=== PATIENT | female | born 1980 | race Caucasian/White ===

== ENCOUNTER 2016-12-07 16:31 | Observation (INO) | payer OTHER ==
--- NOTE | 2016-12-07 16:53 | EDM.PDOC ---
ED HPI GENERAL MEDICAL PROBLEM - General Chief Complaint: Genitourinary Problem Stated Complaint: POSSIBLE KIDNEY INFECTION Time Seen by Provider: 12/07/16 16:33 - History of Present Illness INITIAL COMMENTS - FREE TEXT/NARRATIVE: HISTORY AND PHYSICAL: History of present illness: Patient 36-year-old white female presented concern of bilateral flank pain states she was recently diagnosed with urinary tract infection patient denies fever chills nausea vomiting or other concerns Review of systems: As per history of present illness and below otherwise all systems reviewed and negative. Past medical history: As per history of present illness and as reviewed below otherwise noncontributory. Surgical history: As per history of present illness and as reviewed below otherwise noncontributory. Social history: No reported history of drug or alcohol abuse. Family history: As per history of present illness and as reviewed below otherwise noncontributory. Physical exam: HEENT: Atraumatic, normocephalic, pupils reactive, negative for conjunctival pallor or scleral icterus, mucous membranes moist, throat clear, neck supple, nontender, trachea midline. Lungs: Clear to auscultation, breath sounds equal bilaterally, chest nontender. Heart: S1S2, regular, negative for clicks, rubs, or JVD. Abdomen: Soft, nondistended, nontender. Negative for masses or hepatosplenomegaly. Negative for costovertebral tenderness. Pelvis: Stable nontender. Genitourinary: Deferred. Rectal: Deferred. Extremities: Atraumatic, negative for cords or calf pain. Neurovascular unremarkable. Neuro: Awake, alert, oriented. Cranial nerves II through XII unremarkable. Cerebellum unremarkable. Motor and sensory unremarkable throughout. Exam nonfocal. Diagnostics: CBC CMP UA urine C&S Therapeutics: None Impression: #1 history urinary tract infection #2 bilateral flank pain Definitive disposition and diagnosis as appropriate pending reevaluation and review of above. Low Back Pain Score (Numeric/FACES): 6 - Related Data Allergies Allergy/AdvReac Type Severity Reaction Status Date / Time ciprofloxacin [From Cipro] Allergy Burning Verified 12/07/16 16:50 ciprofloxacin HCl Allergy Burning Verified 12/07/16 16:50 [From Cipro] latex Allergy Redness Verified 12/07/16 16:50 nitrofurantoin Allergy Difficulty Verified 12/07/16 16:50 [From Macrobid] Breathing nitrofurantoin Allergy Difficulty Verified 12/07/16 16:50 macrocrystalline Breathing [From Macrobid] Sulfa (Sulfonamide Allergy Difficulty Verified 12/07/16 16:50 Antibiotics) Breathing Home Meds: Home Meds FLUoxetine [PROzac] 40 mg PO DAILY 02/08/14 [History] Multivitamins [Multivitamins] 1 cap PO DAILY 02/08/14 [History] Levofloxacin [IJP: Levofloxacin] 500 mg PO DAILY 12/07/16 [History] atorvaSTATin [Lipitor] 20 mg PO ONETIME 12/07/16 [History] hydrOXYzine HCl [Atarax] 50 mg PO BEDTIME 12/07/16 [History] Past Medical History 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: Reports: Psychiatric History: Reports: Depression Endocrine/Metabolic History: Reports: Other (see below) Other Endocrine/Metabolic History: prediabetic Dermatologic History: Reports: None - Past Surgical History HEENT Surgical History: Reports: Tonsillectomy Other HEENT Surgeries/Procedures: adenoidectomy GI Surgical History: Reports: Cholecystectomy, Other (see below) Other GI Surgeries/Procedures: gastric bypass Female Surgical History: Reports: D&C, Hysterectomy Social & Family History - Tobacco Use Smoking Status *Q: Never Smoker Years of Tobacco use: 10 Packs/Tins Daily: 1 Second Hand Smoke Exposure: No - Alcohol Use Days Per Week of Alcohol Use: 0 - Recreational Drug Use Recreational Drug Use: No ED ROS GENERAL - Review of Systems Review Of Systems: ROS reveals no pertinent complaints other than HPI. ED EXAM, GENERAL - Physical Exam Exam: See Below (See dictation) Course - Vital Signs Last Recorded V/S: Last Vital Signs Temp 38.5 C H 12/07/16 18:24 Pulse 77 12/07/16 18:24 Resp 18 12/07/16 18:24 BP 111/59 L 12/07/16 18:24 Pulse Ox 95 12/07/16 18:24 - Orders/Labs/Meds Orders: Active Orders 24 hr Category Date Time Status Abdomen Pelvis wo Cont [CT] Stat Exams 12/07/16 17:31 Taken CULTURE URINE [RM] Stat Lab 12/07/16 16:55 Received Labs: Laboratory Tests 12/07/16 12/07/16 12/07/16 Range/Units 16:55 16:55 17:02 WBC 16.53 H (4.0-11.0) K/uL RBC 4.83 (4.30-5.90) M/uL Hgb 11.6 L (12.0-16.0) g/dL Hct 37.2 (36.0-46.0) % MCV 77.0 L (80.0-98.0) fL MCH 24.0 L (27.0-32.0) pg MCHC 31.2 (31.0-37.0) g/dL RDW Std Deviation 48.3 (28.0-62.0) fl RDW Coeff of Joce 17 H (11.0-15.0) % Plt Count 326 (150-400) K/uL MPV 9.10 (7.40-12.00) fL Neut % (Auto) 75.0 (48.0-80.0) % Lymph % (Auto) 16.3 (16.0-40.0) % Hard[place] % (Auto) 7.6 (0.0-15.0) % Eos % (Auto) 0.9 (0.0-7.0) % Baso % (Auto) 0.2 (0.0-1.5) % Neut # (Auto) 12.4 H (1.4-5.7) K/uL Lymph # (Auto) 2.7 H (0.6-2.4) K/uL Harding # (Auto) 1.3 H (0.0-0.8) K/uL Eos # (Auto) 0.2 (0.0-0.7) K/uL Baso # (Auto) 0.0 (0.0-0.1) K/uL Nucleated RBC % 0.0 /100WBC Nucleated RBCs # 0 K/uL Sodium (136-146) mmol/L Potassium (3.5-5.1) mmol/L Chloride (98-110) mmol/L Carbon Dioxide (21-31) mmol/L BUN (6.0-23.0) mg/dL Creatinine (0.6-1.5) mg/dL Est Cr Clr Drug Dosing mL/min Estimated GFR (MDRD) ml/min Glucose (60-110) mg/dL Calcium (8.8-10.8) mg/dL Total Bilirubin (0.1-1.5) mg/dL AST (5-40) IU/L ALT (8-54) IU/L Alkaline Phosphatase (40-150) Total Protein (6.0-8.0) g/dL Albumin (3.5-5.0) g/dL Globulin (2.0-3.5) g/dL Albumin/Globulin Ratio (1.3-2.8) Urine Color YELLOW Urine Appearance CLEAR Urine pH 6.0 (5.0-8.0) Ur Specific [place] 1.020 (1.001-1.035) Urine Protein NEGATIVE (NEGATIVE) mg/dL Urine Glucose (UA) NEGATIVE (NEGATIVE) mg/dL Urine Ketones NEGATIVE (NEGATIVE) mg/dL Urine Occult Blood LARGE H (NEGATIVE) Urine Nitrite NEGATIVE (NEGATIVE) Urine Bilirubin NEGATIVE (NEGATIVE) Urine Urobilinogen 0.2 (<2.0) EU/dL Ur Leukocyte Esterase NEGATIVE (NEGATIVE) Urine RBC 0-2 (0-2/HPF) Urine WBC 0-3 (0-5/HPF) Ur Epithelial Cells FEW (NONE-FEW) Urine Bacteria FEW (NEGATIVE) Urine Mucus LIGHT (NONE-MOD) Urine HCG, Qual NEGATIVE (NEGATIVE) 12/07/16 Range/Units 17:02 WBC (4.0-11.0) K/uL RBC (4.30-5.90) M/uL Hgb (12.0-16.0) g/dL Hct (36.0-46.0) % MCV (80.0-98.0) fL MCH (27.0-32.0) pg MCHC (31.0-37.0) g/dL RDW Std Deviation (28.0-62.0) fl RDW Coeff of Joce (11.0-15.0) % Plt Count (150-400) K/uL MPV (7.40-12.00) fL Neut % (Auto) (48.0-80.0) % Lymph % (Auto) (16.0-40.0) % Harding % (Auto) (0.0-15.0) % Eos % (Auto) (0.0-7.0) % Baso % (Auto) (0.0-1.5) % Neut # (Auto) (1.4-5.7) K/uL Lymph # (Auto) (0.6-2.4) K/uL Harding # (Auto) (0.0-0.8) K/uL Eos # (Auto) (0.0-0.7) K/uL Baso # (Auto) (0.0-0.1) K/uL Nucleated RBC % /100WBC Nucleated RBCs # K/uL Sodium 140 (136-146) mmol/L Potassium 3.8 (3.5-5.1) mmol/L Chloride 106 (98-110) mmol/L Carbon Dioxide 22 (21-31) mmol/L BUN 9 (6.0-23.0) mg/dL Creatinine 1.0 (0.6-1.5) mg/dL Est Cr Clr Drug Dosing 60.98 mL/min Estimated GFR (MDRD) > 60.0 ml/min Glucose 119 H (60-110) mg/dL Calcium 9.1 (8.8-10.8) mg/dL Total Bilirubin 0.3 (0.1-1.5) mg/dL AST 16 (5-40) IU/L ALT 15 (8-54) IU/L Alkaline Phosphatase 113 (40-150) Total Protein 7.3 (6.0-8.0) g/dL Albumin 3.9 (3.5-5.0) g/dL Globulin 3.4 (2.0-3.5) g/dL Albumin/Globulin Ratio 1.2 L (1.3-2.8) Urine Color Urine Appearance Urine pH (5.0-8.0) Ur Specific [place] (1.001-1.035) Urine Protein (NEGATIVE) mg/dL Urine Glucose (UA) (NEGATIVE) mg/dL Urine Ketones (NEGATIVE) mg/dL Urine Occult Blood (NEGATIVE) Urine Nitrite (NEGATIVE) Urine Bilirubin (NEGATIVE) Urine Urobilinogen (<2.0) EU/dL Ur Leukocyte Esterase (NEGATIVE) Urine RBC (0-2/HPF) Urine WBC (0-5/HPF) Ur Epithelial Cells (NONE-FEW) Urine Bacteria (NEGATIVE) Urine Mucus (NONE-MOD) Urine HCG, Qual (NEGATIVE) Departure - Departure Time of Disposition: 16:52 Disposition: Refer to Observation Condition: good Clinical Impression: Fever, Leukocytosis, Flank pain Referrals: PCP,None [Primary Care Provider] - Forms: ED Department Discharge - My Orders Last 24 Hours: My Active Orders 12/07/16 16:55 CULTURE URINE [RM] Stat 12/07/16 17:31 Abdomen Pelvis wo Cont [CT] Stat - Assessment/Plan Last 24 Hours: My Active Orders 12/07/16 16:55 CULTURE URINE [RM] Stat 12/07/16 17:31 Abdomen Pelvis wo Cont [CT] Stat
[2016-12-07 17:29] LABS: CHLORIDE,CL 106 mmol/L (98-110); SODIUM,NA 140 mmol/L (136-146)
[2016-12-07] MEDS ORDERED: cefTRIAXone 1 GM in Premix Bag 1 BAG IV ONE (18:48)
[2016-12-07] MEDS ORDERED: cefTRIAXone 2 GM in Premix Bag 1 BAG IV ONE (18:51)
[2016-12-07] MEDS ORDERED: Sodium Chloride 0.9% 1,000 ML IV ONE (18:51)
[2016-12-07] MEDS ORDERED: Sodium Chloride 0.9% 1,000 ML IV SCH (19:00)
--- NOTE | 2016-12-07 19:23 | PCM.HP ---
H&P History of Present Illness - General Date of Service: 12/07/16 Admit Problem/Dx: Admission Diagnosis/Problem Admission Diagnosis/Problem Fever Source of Information: Patient, Old records, Provider, RN - History of Present Illness Initial Comments - Free Text/Narative: Presented to the emergency department today. She had been on Levaquin as an outpatient for a UTI. She continues to have fever or chills lobe to mid back pain with urination. She has also had a cough. She is a feeling of tightness in her chest is been present for over one day it is been pretty consistent. Low Back Pain Score (Numeric/FACES): 6 - Related Data Allergies/Adverse Reactions: Allergies Allergy/AdvReac Type Severity Reaction Status Date / Time ciprofloxacin [From Cipro] Allergy Burning Verified 12/07/16 16:50 ciprofloxacin HCl Allergy Burning Verified 12/07/16 16:50 [From Cipro] latex Allergy Redness Verified 12/07/16 16:50 nitrofurantoin Allergy Difficulty Verified 12/07/16 16:50 [From Macrobid] Breathing nitrofurantoin Allergy Difficulty Verified 12/07/16 16:50 macrocrystalline Breathing [From Macrobid] Sulfa (Sulfonamide Allergy Difficulty Verified 12/07/16 16:50 Antibiotics) Breathing Home Medications: Home Meds FLUoxetine [PROzac] 40 mg PO DAILY 02/08/14 [History] Multivitamins [Multivitamins] 1 cap PO DAILY 02/08/14 [History] Levofloxacin [IJP: Levofloxacin] 500 mg PO DAILY 12/07/16 [History] atorvaSTATin [Lipitor] 20 mg PO ONETIME 12/07/16 [History] hydrOXYzine HCl [Atarax] 50 mg PO BEDTIME 12/07/16 [History] Past Medical History Cardiovascular History: Reports: High cholesterol. 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: Neurological History: Denies: Alzheimers disease, CVA Psychiatric History: Reports: Depression Endocrine/Metabolic History: Reports: Other (see below) Other Endocrine/Metabolic History: prediabetic Oncologic (Cancer) History: Reports: None Dermatologic History: Reports: None - Past Surgical History HEENT Surgical History: Reports: Tonsillectomy Other HEENT Surgeries/Procedures: adenoidectomy GI Surgical History: Reports: Cholecystectomy, Other (see below) Other GI Surgeries/Procedures: gastric bypass Female Surgical History: Reports: D&C, Hysterectomy Social & Family History - Family History Family Medical History: Noncontributory - Tobacco Use Years of Tobacco use: 10 Packs/Tins Daily: 1 Second Hand Smoke Exposure: No - Alcohol Use Days Per Week of Alcohol Use: 0 - Recreational Drug Use Recreational Drug Use: No H&P Review of Systems - Review of Systems: Review Of Systems: See Below General: Reports: fever, chills HEENT: Denies: ear pain Pulmonary: Reports: Cough, Other (chest heaviness) Gastrointestinal: Reports: Abdominal pain (suprapubic pain) Genitourinary: Reports: hematuria, flank pain Psychiatric: Denies: agitation Exam - Exam Exam: See Below - Vital Signs Vital Signs: Last Vital Signs Temp 101.3 F H 12/07/16 18:24 Pulse 77 12/07/16 18:24 Resp 18 12/07/16 18:24 BP 111/59 L 12/07/16 18:24 Pulse Ox 95 12/07/16 18:24 Weight: 114.2 kg - Exam General: alert, oriented HEENT: EOMI, Mucosa moist & pink Neck: supple, trachea midline Lungs: Clear to auscultation, Normal respiratory effort Cardiovascular: regular rate, regular rhythm Abdomen: soft, tenderness (Suprapubic tenderness) (Female) Exam: Deferred Rectal (Female) Exam: Deferred Back Exam: other (Bilateral flank tenderness) Extremities: No: edema Neurological: cranial nerves intact, normal gait, normal speech. No: abnormal gait Neuro Extensive - Motor, Sensory, Reflexes: No: facial palsy (L), facial palsy ( R), hemiplagia (L), hemiplagia (R) - Patient Data Result Diagrams: 12/07/16 17:02 12/07/16 17:02 *Q Meaningful Use (ADM) - VTE *Q VTE Criteria *Q: - Stroke *Q Stroke Criteria *Q: - AMI *Q AMI Criteria *Q: - Problem List (1) UTI (urinary tract infection) SNOMED Code(s): 25560212 ICD Code: N39.0 - URINARY TRACT INFECTION, SITE NOT SPECIFIED Status: Acute Current Visit: Yes (2) Flank pain SNOMED Code(s): 681409738 ICD Code: R10.9 - UNSPECIFIED ABDOMINAL PAIN Status: Acute Current Visit : Yes (3) Leukocytosis SNOMED Code(s): 772598247, 720537011 ICD Code: D72.829 - ELEVATED WHITE BLOOD CELL COUNT, UNSPECIFIED Status: Acute Current Visit: Yes (4) Chest pain SNOMED Code(s): 15802065 ICD Code: R07.9 - CHEST PAIN, UNSPECIFIED Status: Acute Current Visit: Yes Problem List Initiated/Reviewed/Updated: Yes Orders Last 24hrs: Active Orders 24 hr Category Date Time Status EKG Documentation Completion [RC] STAT Care 12/07/16 19:08 Active Chest 2V [CR] Stat Exams 12/07/16 18:55 Taken TROPONIN I [CHEM] Stat Lab 12/07/16 19:08 Ordered Sodium Chloride 0.9% [Normal Saline] 1,000 ml Med 12/07/16 18:51 Active IV STAT cefTRIAXone [Rocephin in Dextrose,Iso-Osm 2 GM/50 ML] 2 Med 12/07/16 18:51 Active gm Premix Bag 1 bag IV ONETIME Medication Orders Sodium Chloride (Normal Saline) 1,000 mls @ 999 mls/hr IV STAT ONE Stop: 12/07/16 19:51 Last Admin: 12/07/16 18:59 Dose: 999 mls/hr Ceftriaxone Sodium/Dextrose 2 (gm/ Premix) 50 mls @ 100 mls/hr IV ONETIME ONE Stop: 12/07/16 19:20 Last Admin: 12/07/16 18:59 Dose: 100 mls/hr Assessment/Plan Comment:: Admit to observation. See orders. Cover with antibiotics.
[2016-12-07] MEDS ORDERED: Ondansetron 4 MG/2 ML SDV IVPUSH PRN (19:24)
[2016-12-07] MEDS ORDERED: atorvaSTATin 20 MG Tab PO SCH (19:30)
--- NOTE | 2016-12-07 19:51 | CT ---
EXAM DATE: 12/07/16 PATIENT'S AGE: 36 Patient: SALINAS SALDANA Facility: [place], [place] Site . Site : 1980 Study: CT Abdomen/Pelvis [id number]/27/2017 6:06:55 PM Ordering Physician: Lilo Dillard Final Report: INDICATION: bilat low back and pelvic pain TECHNIQUE: CT abdomen and pelvis without contrast. COMPARISON: None FINDINGS: Lower chest: Mild scarring/atelectasis. Liver: Unremarkable. Spleen: Unremarkable. Pancreas: Unremarkable. Gallbladder and bile ducts: Cholecystectomy changes. Kidneys: Unremarkable. No kidney or ureteral stones and no hydronephrosis. Adrenal glands: Unremarkable. GI tract: Gastric bypass changes. Appendix is normal. Vascular structures: Unremarkable. Lymph nodes: Unremarkable. Miscellaneous: Unremarkable. Trace free fluid. No free air. Pelvic Organs: Hysterectomy changes. Bones: Unremarkable for age. IMPRESSION: No acute abnormality of the abdomen and pelvis. No urinary tract stones, hydronephrosis, or other cause for flank pain. Dictated by You Rae MD @ 12/07/2016 6:41:08 PM Dictated by: You Rae MD @ 12/07/2016 18:41:19 (Electronic Signature) Report Signed by Proxy and Original Signed Document filed in the Medical Record. [facility]
[2016-12-07] MEDS: Sodium Chloride 0.9% 1,000 ML IV SCH (20:00)
[2016-12-07] MEDS: Piperacillin/Tazobactam 3.375 GM in Sodium Chloride 0.9% 50 ML IV SCH (20:52)
[2016-12-07] MEDS: atorvaSTATin 20 MG Tab PO SCH (20:53)
[2016-12-07] MEDS: hydrOXYzine HCl 25 MG Tab PO SCH (20:53)
[2016-12-07] MEDS: Temazepam 15 MG Cap PO PRN (20:53)
[2016-12-08] MEDS: Piperacillin/Tazobactam 3.375 GM in Sodium Chloride 0.9% 50 ML IV SCH ×4 (02:27→20:03)
[2016-12-08] MEDS: Sodium Chloride 0.9% 1,000 ML IV SCH ×3 (02:31→23:56)
[2016-12-08 05:44] LABS: CHLORIDE,CL 111 mmol/L (98-110); SODIUM,NA 144 mmol/L (136-146)
[2016-12-08] MEDS: FLUoxetine 20 MG Cap PO SCH (08:02)
[2016-12-08] MEDS: atorvaSTATin 20 MG Tab PO SCH (08:03)
[2016-12-08] MEDS: Multivitamins with Iron/Calcium/Folic Acid/Minerals Tab PO SCH (08:03)
--- NOTE | 2016-12-08 08:18 | PCM.PN ---
- General Info Date of Service: 12/08/16 Admission Dx/Problem (Free Text): Admission Diagnosis/Problem Admission Diagnosis/Problem Fever Subjective Update: Feeling a lot better today. No further chest heaviness. Still having some L > R flank pain. Some dysuria still, but this is improving. No SOB or palpitations. Functional Status: Reports: pain controlled, tolerating diet, ambulating, urinating - Review of Systems General: Reports: Fever HEENT: Reports: sinus congestion (chronic) Pulmonary: Reports: no symptoms. Denies: shortness of breath, cough, sputum Cardiovascular: Reports: No Symptoms. Denies: Chest Pain, Palpitations, Edema Gastrointestinal: Reports: No symptoms. Denies: Abdominal pain, Nausea, Vomiting Genitourinary: Reports: dysuria, frequency, flank pain (L>R). Denies: incontinence Skin: Reports: no symptoms Neurological: Reports: No Symptoms Psychiatric: Reports: no symptoms - Patient Data Vitals - most recent: Last Vital Signs Temp 97.9 F 12/08/16 04:00 Pulse 72 12/08/16 04:00 Resp 14 12/08/16 04:00 BP 91/50 L 12/08/16 04:00 Pulse Ox 96 12/08/16 04:00 Weight - most recent: 112.536 kg I&O - last 24 hours: Intake & Output 12/07/16 12/08/16 12/08/16 22:59 06:59 14:59 Intake Total 50 1350 50 Output Total 1100 Balance 50 250 50 Lab Results last 24 hrs: Laboratory Results - last 24 hr 12/07/16 12/08/16 12/08/16 Range/Units 19:20 05:07 05:07 WBC 11.70 H (4.0-11.0) K/uL RBC 4.25 L (4.30-5.90) M/uL Hgb 10.1 L (12.0-16.0) g/dL Hct 33.0 L (36.0-46.0) % MCV 77.6 L (80.0-98.0) fL MCH 23.8 L (27.0-32.0) pg MCHC 30.6 L (31.0-37.0) g/dL RDW Std Deviation 48.2 (28.0-62.0) fl RDW Coeff of Joce 17 H (11.0-15.0) % Plt Count 300 (150-400) K/uL MPV 9.40 (7.40-12.00) fL Neut % (Auto) 62.7 (48.0-80.0) % Lymph % (Auto) 27.1 (16.0-40.0) % [place] % (Auto) 8.7 (0.0-15.0) % Eos % (Auto) 1.3 (0.0-7.0) % Baso % (Auto) 0.2 (0.0-1.5) % Neut # (Auto) 7.3 H (1.4-5.7) K/uL Lymph # (Auto) 3.2 H (0.6-2.4) K/uL Christian # (Auto) 1.0 H (0.0-0.8) K/uL Eos # (Auto) 0.2 (0.0-0.7) K/uL Baso # (Auto) 0.0 (0.0-0.1) K/uL Nucleated RBC % 0.0 /100WBC Nucleated RBCs # 0 K/uL Sodium 144 (136-146) mmol/L Potassium 3.7 (3.5-5.1) mmol/L Chloride 111 H (98-110) mmol/L Carbon Dioxide 23 (21-31) mmol/L BUN 7 (6.0-23.0) mg/dL Creatinine 0.9 (0.6-1.5) mg/dL Est Cr Clr Drug Dosing 65.21 mL/min Estimated GFR (MDRD) > 60.0 ml/min Glucose 92 (60-110) mg/dL Calcium 8.4 L (8.8-10.8) mg/dL Magnesium 1.6 (1.5-2.3) mEq/L Troponin I < 0.10 (0.0-0.29) NG/ML 12/08/16 Range/Units 05:07 WBC (4.0-11.0) K/uL RBC (4.30-5.90) M/uL Hgb (12.0-16.0) g/dL Hct (36.0-46.0) % MCV (80.0-98.0) fL MCH (27.0-32.0) pg MCHC (31.0-37.0) g/dL RDW Std Deviation (28.0-62.0) fl RDW Coeff of Joce (11.0-15.0) % Plt Count (150-400) K/uL MPV (7.40-12.00) fL Neut % (Auto) (48.0-80.0) % Lymph % (Auto) (16.0-40.0) % Christian % (Auto) (0.0-15.0) % Eos % (Auto) (0.0-7.0) % Baso % (Auto) (0.0-1.5) % Neut # (Auto) (1.4-5.7) K/uL Lymph # (Auto) (0.6-2.4) K/uL Christian # (Auto) (0.0-0.8) K/uL Eos # (Auto) (0.0-0.7) K/uL Baso # (Auto) (0.0-0.1) K/uL Nucleated RBC % /100WBC Nucleated RBCs # K/uL Sodium (136-146) mmol/L Potassium (3.5-5.1) mmol/L Chloride (98-110) mmol/L Carbon Dioxide (21-31) mmol/L BUN (6.0-23.0) mg/dL Creatinine (0.6-1.5) mg/dL Est Cr Clr Drug Dosing mL/min Estimated GFR (MDRD) ml/min Glucose (60-110) mg/dL Calcium (8.8-10.8) mg/dL Magnesium (1.5-2.3) mEq/L Troponin I < 0.10 (0.0-0.29) NG/ML Med Orders - Current: Current Medications Atorvastatin Calcium (Lipitor) 20 mg PO DAILY [facility] Last Admin: 12/08/16 08:03 Dose: 20 mg Fluoxetine HCl (Prozac) 40 mg PO DAILY [facility] Last Admin: 12/08/16 08:02 Dose: 40 mg Hydroxyzine HCl (Atarax) 50 mg PO BEDTIME [facility] Last Admin: 12/07/16 20:53 Dose: 50 mg Piperacillin Sod/Tazobactam (Sod 3.375 gm/ Sodium Chloride) 50 mls @ 100 mls/ hr IV Q6H [facility] Last Admin: 12/08/16 08:04 Dose: 100 mls/hr Sodium Chloride (Normal Saline) 1,000 mls @ 125 mls/hr IV ASDIRECTED [facility] Last Admin: 12/08/16 02:31 Dose: 125 mls/hr Multivitamins/Minerals (Thera M Plus) 1 tab PO DAILY [facility] Last Admin: 12/08/16 08:03 Dose: 1 tab Ondansetron HCl (Zofran) 4 mg IVPUSH Q4H PRN PRN Reason: Nausea Temazepam (Restoril) 15 mg PO BEDTIME PRN PRN Reason: Sleep Last Admin: 12/07/16 20:53 Dose: 15 mg Discontinued Medications Atorvastatin Calcium (Lipitor) 20 mg PO ONETIME [facility] Ceftriaxone Sodium/Dextrose 1 (gm/ Premix) 50 mls @ 100 mls/hr IV ONETIME ONE Stop: 12/07/16 19:17 Last Admin: 12/07/16 19:35 Dose: Not Given Sodium Chloride (Normal Saline) 1,000 mls @ 999 mls/hr IV ASDIRECTED [facility] Sodium Chloride (Normal Saline) 1,000 mls @ 999 mls/hr IV STAT ONE Stop: 12/07/16 19:51 Last Admin: 12/07/16 18:59 Dose: 999 mls/hr Ceftriaxone Sodium/Dextrose 2 (gm/ Premix) 50 mls @ 100 mls/hr IV ONETIME ONE Stop: 12/07/16 19:20 Last Admin: 12/07/16 18:59 Dose: 100 mls/hr - Exam General: alert, oriented, cooperative Neck: supple Lungs: Clear to auscultation, Normal respiratory effort Cardiovascular: Regular Rate, Regular Rhythm Abdomen: bowel sounds present, soft, no distension, CVA tenderness Extremities: no edema, normal pulses, no tenderness/swelling Skin: warm, dry, intact Psy/Mental Status: alert, normal affect, normal mood - Problem List & Annotations (1) Pyelonephritis SNOMED Code(s): 88176176 Code(s): N12 - TUBULO-INTERSTITIAL NEPHRITIS, NOT SPCF ACUTE OR CHRONIC Status: Acute Current Visit: Yes (2) Fever SNOMED Code(s): 688676453 Code(s): R50.9 - FEVER, UNSPECIFIED Status: Acute Current Visit: Yes Qualifiers: Encounter type: initial encounter (3) Flank pain SNOMED Code(s): 809404147 Code(s): R10.9 - UNSPECIFIED ABDOMINAL PAIN Status: Acute Current Visit: Yes (4) Leukocytosis SNOMED Code(s): 359794381, 526294671 Code(s): D72.829 - ELEVATED WHITE BLOOD CELL COUNT, UNSPECIFIED Status: Acute Current Visit: Yes - Problem List Review Problem List Initiated/Reviewed/Updated: Yes - Plan Plan:: This 36 year old female admitted with fever, leukocytosis, UTI and suspected pyelonephritis 1. Pyelonephritis: Continues to have flank pain, leukocytosis improving, today 11,700. Continue Zosyn. UC pending. Continue NS 125 today. Have fever last evening, would like to see 24hr afebrile. 2. Chest heaviness: Likely secondary to allergy to fluoroquinolones. She is no longer having this symptoms and feels much better. VTE: DIspo: 1-2 days pending improvement.
[2016-12-08] MEDS: Acetaminophen 325 MG Tab PO PRN ×2 (11:41→20:19)
--- NOTE | 2016-12-08 12:38 | CR ---
EXAM DATE: 12/07/16 PATIENT'S AGE: 36 Patient: SALINAS SALDANA Facility: [place], [place] Site . Site : 1980 Study: XRay Chest [id number]/27/2017 7:14:46 PM Ordering Physician: Lilo Dillard Final Report: INDICATION: chest pressure, fever TECHNIQUE: Chest 2 views COMPARISON: November 15, 2008. FINDINGS: Cardiovascular and mediastinum: Heart size and vasculature are normal in caliber and appearance. Mediastinum is within normal limits. Lungs and pleural spaces: No focal consolidation. No sign of pleural effusion. No pneumothorax. Bones and soft tissues: No significant findings. IMPRESSION: No acute cardiopulmonary disease. Dictated by You Rae MD @ 12/07/2016 7:31:58 PM Dictated by: You Rae MD @ 12/07/2016 19:32:46 (Electronic Signature) Report Signed by Proxy and Original Signed Document filed in the Medical Record. [facility]
[2016-12-08] MEDS: hydrOXYzine HCl 25 MG Tab PO SCH (20:08)
[2016-12-08] MEDS: Temazepam 15 MG Cap PO PRN (21:40)
[2016-12-09] MEDS: Piperacillin/Tazobactam 3.375 GM in Sodium Chloride 0.9% 50 ML IV SCH ×2 (01:42→08:24)
[2016-12-09 05:40] LABS: CHLORIDE,CL 114 mmol/L (98-110); SODIUM,NA 144 mmol/L (136-146)
[2016-12-09] MEDS: atorvaSTATin 20 MG Tab PO SCH (08:33)
[2016-12-09] MEDS: FLUoxetine 20 MG Cap PO SCH (08:34)
[2016-12-09] MEDS: Acetaminophen 325 MG Tab PO PRN (08:35)
[2016-12-09] MEDS: Multivitamins with Iron/Calcium/Folic Acid/Minerals Tab PO SCH (08:35)
[2016-12-09] MEDS ORDERED: Acetaminophen/HYDROcodone 325-5 MG Tab PO PRN (09:14)
[2016-12-09 10:10] VITALS: BP 112/58
--- NOTE | 2016-12-09 12:31 | PCM.DCSUM1 ---
Discharge Summary - Hospital Course Brief History: This 36 year old female with pmh depression and obesity presented to the emergency department 12/07/2016 with complaints of flank pain, fever, chills and dysuria. She was seen at a walk in clinic 5 days ago for UTI symptoms and placed on Levaquin. She has also had a cough. She is a feeling of tightness in her chest is been present for over the last few days, since taking Levaquin. She has known allergies to Ciprofloxacin, which gives her similar symptoms. In the ED leukocytosis noted, 16,530, BMP WNL. UA negative, likely due to taking Levaquin recently. Abd CT was unremarkable. She was admitted on observation for UTI and suspected pyelonephritis. - Discharge Data Discharge Date: 12/09/16 Discharge Disposition: Home, Self-Care 01 Condition: Good - Discharge Diagnosis/Problem(s) (1) Pyelonephritis SNOMED Code(s): 65484419 ICD Code: N12 - TUBULO-INTERSTITIAL NEPHRITIS, NOT SPCF ACUTE OR CHRONIC Status: Acute Current Visit: Yes (2) Fever SNOMED Code(s): 682569406 ICD Code: R50.9 - FEVER, UNSPECIFIED Status: Acute Current Visit: Yes Qualifiers: Encounter type: initial encounter (3) Flank pain SNOMED Code(s): 446128936 ICD Code: R10.9 - UNSPECIFIED ABDOMINAL PAIN Status: Acute Current Visit : Yes (4) Leukocytosis SNOMED Code(s): 633929244, 517069189 ICD Code: D72.829 - ELEVATED WHITE BLOOD CELL COUNT, UNSPECIFIED Status: Acute Current Visit: Yes - Patient Instructions Diet: Regular Diet as Tolerated Activity: As Tolerated Showering/Bathing: May Shower Notify Provider of: Fever, Increased Pain, Swelling and Redness - Discharge Plan Prescriptions/Med Rec: Acetaminophen/HYDROcodone [[place] 325-5 MG] 1 tab PO Q6H PRN #10 tablet PRN Reason: Pain Amoxicillin/Potassium Clav [Augmentin 875-125 Tablet] 1 each PO BID #24 tablet Home Medications: Home Meds FLUoxetine [PROzac] 40 mg PO DAILY 02/08/14 [History] Multivitamins 1 cap PO DAILY 02/08/14 [History] atorvaSTATin [Lipitor] 20 mg PO DAILY 12/07/16 [History] hydrOXYzine HCl [Atarax] 50 mg PO BEDTIME 12/07/16 [History] Acetaminophen/HYDROcodone [[place] 325-5 MG] 1 tab PO Q6H PRN #10 tablet 12/09/16 [Rx] Amoxicillin/Potassium Clav [Augmentin 875-125 Tablet] 1 each PO BID #24 tablet 12/09/16 [Rx] Patient Handouts: Acetaminophen; Hydrocodone tablets or capsules, Amoxicillin; Clavulanic Acid tablets, Pyelonephritis, Adult, [id number], Urinary Tract Infection, Adult, Nonspecific Chest Pain, [id number] Referrals: [facility] [Outside] Мария Myers NP [Ordering Only Provider] - 12/16/16 2:15 pm - Discharge Summary/Plan Comment DC Time >30 min.: No Discharge Summary/Plan Comment: Discharge Diagnosis: Pyelonephritis Depression Allergic reaction Yaritza was admitted and treated with Zosyn for pyelonephritis due to multiple drug allergies. SHe responded well. Continues to have slight L flank tenderness , but this is controlled with [place] 5/325. No further dysuria. Leukocytosis has resolved, today 9,400. She has been afebrile for 24 hours +. She did have chest heaviness on admission, ACS was ruled out, tropinins all negative. Chest heaviness likely related to Levaquin and fluoroquinolone allergy. She reports this is similar symptom she had with Ciprofloxacin. She is requesting discharge today. I will discharge her home on Augmentin BID for 12 more days, total of 14 days treatment for pyelonephritis. I will also give her [place] 5/325 mg 1 tab every 6 hours PRN pain #10 0RF for flank pain. She is to follow up with PCP in 1 -2 weeks to ensure continued improvement. She is to return to clinic or ED if concerns should arise. - General Info Date of Service: 12/09/16 Admission Dx/Problem (Free Text: Admission Diagnosis/Problem Admission Diagnosis/Problem Fever Subjective Update: Feeling a lot better today. No further chest heaviness. Still having some L > R flank pain. Some dysuria still, but this is improving. No SOB or palpitations. Functional Status: Reports: pain controlled, tolerating diet, ambulating, urinating - Review of Systems General: Reports: No Symptoms. Denies: Fever, Weakness HEENT: Reports: no symptoms. Denies: sinus congestion, sore throat Pulmonary: Reports: no symptoms. Denies: shortness of breath Cardiovascular: Reports: No Symptoms. Denies: Chest Pain, Palpitations Gastrointestinal: Reports: No symptoms. Denies: Nausea, Vomiting Genitourinary: Reports: flank pain (improved, to L) Musculoskeletal: Reports: no symptoms Skin: Reports: no symptoms Neurological: Reports: No Symptoms Psychiatric: Reports: no symptoms - Patient Data Vitals - Most Recent: Last Vital Signs Temp 98.0 F 12/09/16 08:00 Pulse 79 12/09/16 08:00 Resp 18 12/09/16 08:00 BP 112/58 L 12/09/16 08:00 Pulse Ox 95 12/09/16 08:00 Weight - Most Recent: 112.536 kg I&O - Last 24 hours: Intake & Output 12/08/16 12/09/16 12/09/16 22:59 06:59 14:59 Intake Total 824 3369 Output Total 1150 800 Balance -326 2569 Lab Results - Last 24 hrs: Laboratory Results - last 24 hr 12/09/16 12/09/16 Range/Units 05:07 05:07 WBC 9.40 (4.0-11.0) K/uL RBC 4.30 (4.30-5.90) M/uL Hgb 10.2 L (12.0-16.0) g/dL Hct 33.9 L (36.0-46.0) % MCV 78.8 L (80.0-98.0) fL MCH 23.7 L (27.0-32.0) pg MCHC 30.1 L (31.0-37.0) g/dL RDW Std Deviation 49.2 (28.0-62.0) fl RDW Coeff of Joce 17 H (11.0-15.0) % Plt Count 286 (150-400) K/uL MPV 9.60 (7.40-12.00) fL Neut % (Auto) 58.7 (48.0-80.0) % Lymph % (Auto) 30.5 (16.0-40.0) % Pickett % (Auto) 7.0 (0.0-15.0) % Eos % (Auto) 3.6 (0.0-7.0) % Baso % (Auto) 0.2 (0.0-1.5) % Neut # (Auto) 5.5 (1.4-5.7) K/uL Lymph # (Auto) 2.9 H (0.6-2.4) K/uL Pickett # (Auto) 0.7 (0.0-0.8) K/uL Eos # (Auto) 0.3 (0.0-0.7) K/uL Baso # (Auto) 0.0 (0.0-0.1) K/uL Nucleated RBC % 0.0 /100WBC Nucleated RBCs # 0 K/uL Sodium 144 (136-146) mmol/L Potassium 3.8 (3.5-5.1) mmol/L Chloride 114 H (98-110) mmol/L Carbon Dioxide 23 (21-31) mmol/L BUN 8 (6.0-23.0) mg/dL Creatinine 0.8 (0.6-1.5) mg/dL Est Cr Clr Drug Dosing 73.36 mL/min Estimated GFR (MDRD) > 60.0 ml/min Glucose 84 (60-110) mg/dL Calcium 8.0 L (8.8-10.8) mg/dL Med Orders - Current: Current Medications Acetaminophen (Tylenol) 650 mg PO Q4H PRN PRN Reason: Pain Last Admin: 12/09/16 08:35 Dose: 650 mg Hydrocodone Bitart/Acetaminophen ([place] 325-5 Mg) 1 tab PO Q4H PRN PRN Reason: Pain Last Admin: 12/09/16 09:37 Dose: 1 tab Atorvastatin Calcium (Lipitor) 20 mg PO DAILY [facility] Last Admin: 12/09/16 08:33 Dose: 20 mg Fluoxetine HCl (Prozac) 40 mg PO DAILY [facility] Last Admin: 12/09/16 08:34 Dose: 40 mg Hydroxyzine HCl (Atarax) 50 mg PO BEDTIME [facility] Last Admin: 12/08/16 20:08 Dose: 50 mg Piperacillin Sod/Tazobactam (Sod 3.375 gm/ Sodium Chloride) 50 mls @ 100 mls/ hr IV Q6H [facility] Last Admin: 12/09/16 08:24 Dose: 100 mls/hr Sodium Chloride (Normal Saline) 1,000 mls @ 125 mls/hr IV ASDIRECTED [facility] Last Admin: 12/08/16 23:56 Dose: 125 mls/hr Multivitamins/Minerals (Thera M Plus) 1 tab PO DAILY [facility] Last Admin: 12/09/16 08:35 Dose: 1 tab Ondansetron HCl (Zofran) 4 mg IVPUSH Q4H PRN PRN Reason: Nausea Temazepam (Restoril) 15 mg PO BEDTIME PRN PRN Reason: Sleep Last Admin: 12/08/16 21:40 Dose: 15 mg Discontinued Medications Atorvastatin Calcium (Lipitor) 20 mg PO ONETIME [facility] Ceftriaxone Sodium/Dextrose 1 (gm/ Premix) 50 mls @ 100 mls/hr IV ONETIME ONE Stop: 12/07/16 19:17 Last Admin: 12/07/16 19:35 Dose: Not Given Sodium Chloride (Normal Saline) 1,000 mls @ 999 mls/hr IV ASDIRECTED [facility] Sodium Chloride (Normal Saline) 1,000 mls @ 999 mls/hr IV STAT ONE Stop: 12/07/16 19:51 Last Admin: 12/07/16 18:59 Dose: 999 mls/hr Ceftriaxone Sodium/Dextrose 2 (gm/ Premix) 50 mls @ 100 mls/hr IV ONETIME ONE Stop: 12/07/16 19:20 Last Admin: 12/07/16 18:59 Dose: 100 mls/hr - Exam General: Reports: alert, oriented, cooperative Lungs: Reports: Clear to auscultation, Normal respiratory effort Cardiovascular: Reports: Regular Rate, Regular Rhythm Abdomen: Reports: bowel sounds present, soft, no tenderness, no distension, CVA tenderness (L improved, but black oxide coating equipment tender) Extremities: Reports: no edema Psy/Mental Status: Reports: alert, normal affect, normal mood *Q Meaningful Use (DIS) - VTE *Q VTE Criteria *Q: - Stroke *Q Stroke Criteria *Q: - AMI *Q AMI Criteria *Q:
== END 2016-12-09 12:38 | disposition home or self-care (01) ==
LOC: MW.ED 16:31 → MW.MS 18:49
PROVIDERS: ADMIT Family Medicine; ATTEND Family Medicine
DX: N12 Tubulo-interstitial nephritis, not specified as acute or chronic (principal); N39.0 Urinary tract infection, site not specified; R10.9 Unspecified abdominal pain; D72.829 Elevated white blood cell count, unspecified; R07.9 Chest pain, unspecified; E78.00 Pure hypercholesterolemia, unspecified; F32.9 Major depressive disorder, single episode, unspecified; N18.9 Chronic kidney disease, unspecified; N17.9 Acute kidney failure, unspecified; Z79.2 Long term (current) use of antibiotics; Z79.899 Other long term (current) drug therapy; Z88.1 Allergy status to other antibiotic agents; Z88.2 Allergy status to sulfonamides; Z88.8 Allergy status to other drugs, medicaments and biological substances; Z91.040 Latex allergy status; Z90.49 Acquired absence of other specified parts of digestive tract; Z90.710 Acquired absence of both cervix and uterus; Z98.890 Other specified postprocedural states
CPT/HCPCS: 36415; 71020; 74176; 80048; 80053; 81001; 81025; 83735; 84484; 85025; 87086; 93005; 96361; 96365; 96366; 96367; 99285; A9270; G0378; J0696; J2543; J7040; J7050; 99284

== ENCOUNTER 2017-11-08 16:36 | Emergency (ER) | payer OTHER ==
--- NOTE | 2017-11-08 17:15 | EDM.PDOC ---
ED HPI GENERAL MEDICAL PROBLEM - General Chief Complaint: ENT Problem Stated Complaint: both ears ache Time Seen by Provider: 11/08/17 17:08 Source of Information: Reports: Patient History Limitations: Reports: No Limitations - History of Present Illness INITIAL COMMENTS - FREE TEXT/NARRATIVE: HISTORY AND PHYSICAL: History of present illness: patient is a 37-year-old female who presents to the emergency room today with complaints of bilateral ear pain 3 days. she is concerned as she feels that she has had some waxy drainage from both ears. Review of systems: As per history of present illness and below otherwise all systems reviewed and negative. Past medical history: As per history of present illness and as reviewed below otherwise noncontributory. Surgical history: As per history of present illness and as reviewed below otherwise noncontributory. Social history: No reported history of drug or alcohol abuse. Family history: As per history of present illness and as reviewed below otherwise noncontributory. Physical exam: General: Well developed and well nourished 37-year-old female. Alert and oriented. Nontoxic appearing and in no acute distress. HEENT: Atraumatic, normocephalic, pupils reactive, negative for conjunctival pallor or scleral icterus, mucous membranes moist, TM errythematous to right ear , no bulging, with dull light reflex. Unable to visualize left TM due to cerumen , canal intact. Otherwise throat clear, neck supple, nontender, trachea midline. no drooling or trismus. No meningeal signs. Lungs: Clear to auscultation, breath sounds equal bilaterally, chest nontender. Heart: S1S2, regular rate and rhtyhm, no overt murmur Abdomen: Soft, nondistended, nontender. Negative for masses or hepatosplenomegaly. Negative for costovertebral tenderness. Pelvis: Stable nontender. Genitourinary: Deferred. Rectal: Deferred. Extremities: Atraumatic, moves all extremities per self without difficulty or deficits, negative for cords or calf pain. Neurovascular unremarkable. Neuro: Awake, alert, oriented. Cranial nerves II through XII unremarkable. Cerebellum unremarkable. Motor and sensory unremarkable throughout. Exam nonfocal. Diagnostics: [] Therapeutics: [] Impression: Otitus media, right Plan: 1. Please take the antibiotic as directed. Avoid putting Q-tips into the ear canal. 2. Tylenol and/or ibuprofen as needed for pain and fever management. 3. Follow up with your primary care provider within the next couple days. Return to the ED as needed and as discussed. Definitive disposition and diagnosis as appropriate pending reevaluation and review of above. Duration: Day(s): Location: Reports: Head - Related Data Allergies Allergy/AdvReac Type Severity Reaction Status Date / Time ciprofloxacin HCl Allergy Burning Verified 11/08/17 17:14 [From Cipro] latex Allergy Redness Verified 11/08/17 17:14 levofloxacin [From Levaquin] Allergy Difficulty Verified 11/08/17 17:14 Breathing lidocaine Allergy Facial Verified 11/08/17 17:14 Swelling nitrofurantoin Allergy Difficulty Verified 11/08/17 17:14 [From Macrobid] Breathing nitrofurantoin Allergy Difficulty Verified 11/08/17 17:14 macrocrystalline Breathing [From Macrobid] Sulfa (Sulfonamide Allergy Difficulty Verified 11/08/17 17:14 Antibiotics) Breathing Home Meds: Home Meds FLUoxetine [PROzac] 40 mg PO DAILY 02/08/14 [History] Multivitamins 1 cap PO DAILY 02/08/14 [History] atorvaSTATin [Lipitor] 20 mg PO DAILY 12/07/16 [History] hydrOXYzine HCl [Atarax] 50 mg PO BEDTIME 12/07/16 [History] Acetaminophen/HYDROcodone [[place] 325-5 MG] 1 tab PO Q6H PRN #10 tablet 12/09/16 [Rx] Amoxicillin/Potassium Clav [Augmentin 875-125 Tablet] 1 each PO BID #24 tablet 12/09/16 [Rx] Past Medical History HEENT History: Reports: Sinusitis Cardiovascular History: Reports: High Cholesterol Gastrointestinal History: Reports: None Genitourinary History: Reports: UTI, Recurrent MANAGER SUSTAINABILITY History: Reports: Musculoskeletal History: Reports: Arthritis Neurological History: Reports: Headaches, Chronic Psychiatric History: Reports: Anxiety, Depression Endocrine/Metabolic History: Reports: Obesity/BMI 30+, Other (See Below) Other Endocrine/Metabolic History: prediabetic Hematologic History: Reports: Anemia Oncologic (Cancer) History: Reports: None Dermatologic History: Reports: None - Infectious Disease History Infectious Disease History: Reports: MRSA Other Infectious Disease History: Hx of MRSA Last 2006 in armpits and stomach - Past Surgical History GI Surgical History: Reports: Cholecystectomy, Other (See Below) Social & Family History - Family History Family Medical History: Noncontributory HEENT: Reports: Cataract, Sinusitis Cardiac: Reports: High Cholesterol, Hypertension Respiratory: Reports: Asthma, COPD OBGYN: Reports: Musculoskeletal: Reports: Osteoarthritis Neurological: Reports: Alzheimers Disease Psychiatric: Reports: Anxiety, Depression Endocrine/Metabolic: Reports: Diabetes, Type I, Diabetes, type II Oncologic: Reports: Lung, Lymphoma - Tobacco Use Smoking Status *Q: Current Every Day Smoker Years of Tobacco use: 15 Packs/Tins Daily: 1 Second Hand Smoke Exposure: No - Caffeine Use Caffeine Use: Reports: Coffee, Soda - Alcohol Use Days Per Week of Alcohol Use: 0 - Recreational Drug Use Recreational Drug Use: No ED ROS ENT - Review of Systems Review Of Systems: ROS reveals no pertinent complaints other than HPI. ED EXAM, ENT - Physical Exam Exam: See Below (See dictation) Course - Vital Signs Last Recorded V/S: Last Vital Signs Temp 97.8 F 11/08/17 17:14 Pulse 83 11/08/17 17:14 Resp 18 11/08/17 17:14 BP 132/78 11/08/17 17:14 Pulse Ox 95 11/08/17 17:14 Departure - Departure Time of Disposition: 17:22 Disposition: Home, Self-Care 01 Clinical Impression: Otitis media Qualifiers: Otitis media type: suppurative Chronicity: acute Laterality: right Recurrence: not specified as recurrent Spontaneous tympanic membrane rupture: without spontaneous rupture Qualified Code(s): H66.001 - Acute suppurative otitis media without spontaneous rupture of ear drum, right ear - Discharge Information Instructions: Otitis Media, Adult, [id number] Referrals: Мария Myers NP [Primary Care Provider] - Forms: ED Department Discharge Additional Instructions: My general discharge The following information is given to patients seen in the emergency department who are being discharged to home. This information is to outline your options for follow-up care. We provide all patients seen in our emergency department with a follow-up referral. The need for follow-up, as well as the timing and circumstances, are variable depending upon the specifics of your emergency department visit. If you don't have a primary care physician on staff, we will provide you with a referral. We always advise you to contact your personal physician following an emergency department visit to inform them of the circumstance of the visit and for follow-up with them and/or the need for any referrals to a consulting specialist. The emergency department will also refer you to a specialist when appropriate. This referral assures that you have the opportunity for follow-up care with a specialist. All of these measure are taken in an effort to provide you with optimal care, which includes your follow-up. Under all circumstances we always encourage you to contact your private physician who remains a resource for coordinating your care. When calling for follow-up care, please make the office aware that this follow-up is from your recent emergency room visit. If for any reason you are refused follow-up, please contact the [facility] Emergency Department at and asked to speak to the emergency department charge nurse. [facility] [address] [place] [id number] 1. Please take the antibiotic as directed (Electronically sent to [place] pharmacy). Avoid putting Q-tips into the ear canal. 2. Tylenol and/or ibuprofen as needed for pain and fever management. 3. Follow up with your primary care provider within the next couple days. Return to the ED as needed and as discussed.
[2017-11-08 17:38] VITALS: BP 133/71
== END 2017-11-08 17:35 | disposition home or self-care (01) ==
LOC: MW.ED 16:36
DX: H66.001 Acute suppurative otitis media without spontaneous rupture of ear drum, right ear (principal); E78.00 Pure hypercholesterolemia, unspecified; F32.9 Major depressive disorder, single episode, unspecified; F17.210 Nicotine dependence, cigarettes, uncomplicated; Z79.899 Other long term (current) drug therapy; Z88.4 Allergy status to anesthetic agent; Z88.2 Allergy status to sulfonamides; Z88.1 Allergy status to other antibiotic agents; Z88.8 Allergy status to other drugs, medicaments and biological substances; Z91.040 Latex allergy status
CPT/HCPCS: 99282

== ENCOUNTER 2019-06-10 18:54 | Emergency (ER) | payer OTHER ==
--- NOTE | 2019-06-10 19:07 | EDM.PDOC ---
ED HPI GENERAL MEDICAL PROBLEM - General Chief Complaint: Skin Complaint Stated Complaint: RASH Time Seen by Provider: 06/10/19 19:20 Source of Information: Reports: Patient History Limitations: Reports: No Limitations - History of Present Illness INITIAL COMMENTS - FREE TEXT/NARRATIVE: HISTORY AND PHYSICAL: History of present illness: Patient is a 39-year-old female presents to the ED with complaint of rash. She states yesterday she noticed a dime sized lesion on her right upper arm that looked like a bug bite. Since then it has grown and is itchy, painful, and warm to touch. She denies fevers, chills, nausea, vomiting. She is able to flex and extend her elbow without discomfort. Review of systems: As per history of present illness and below otherwise all systems reviewed and negative. Past medical history: As per history of present illness and as reviewed below otherwise noncontributory. Surgical history: As per history of present illness and as reviewed below otherwise noncontributory. Social history: No reported history of drug or alcohol abuse. Family history: As per history of present illness and as reviewed below otherwise noncontributory. Physical exam: General: Patient sitting comfortably in no acute distress and nontoxic appearing HEENT: Atraumatic, normocephalic, pupils reactive, negative for conjunctival pallor or scleral icterus, mucous membranes moist, throat clear, neck supple, nontender, trachea midline. No meningeal signs. Lungs: Clear to auscultation, breath sounds equal bilaterally, chest nontender. Heart: S1S2, regular, negative for clicks, rubs, or overt murmur. Abdomen: Soft, nondistended, nontender. Negative for masses or hepatosplenomegaly. Negative for costovertebral tenderness. No rigidity, rebound , guarding. Pelvis: Stable nontender. Genitourinary: Deferred. Rectal: Deferred. Skin: There is a quarter sized raised pink macule to the right upper arm with a moderate amount of erythema. It is warm to touch, there is no purulence or fluctuance noted. Extremities: Atraumatic, negative for cords or calf pain. Neurovascular unremarkable. Neuro: Awake, alert, oriented. Cranial nerves II through XII unremarkable. Cerebellum unremarkable. Motor and sensory unremarkable throughout. Exam nonfocal. Notes: Diagnostics: x-ray right elbow Therapeutics: Prescriptions: Dicloxacillin Impression: Cellulitis Plan: Take antibiotic as instructed Follow up with primary care provider Return to ED as needed as discussed Definitive disposition and diagnosis as appropriate pending reevaluation and review of above. Right Arm Pain Score (Numeric/FACES): 3 - Related Data Allergies Allergy/AdvReac Type Severity Reaction Status Date / Time ciprofloxacin HCl Allergy Burning Verified 06/10/19 19:10 [From Cipro] latex Allergy Redness Verified 06/10/19 19:10 levofloxacin [From Levaquin] Allergy Difficulty Verified 06/10/19 19:10 Breathing lidocaine Allergy Facial Verified 06/10/19 19:10 Swelling nitrofurantoin Allergy Difficulty Verified 06/10/19 19:10 [From Macrobid] Breathing nitrofurantoin Allergy Difficulty Verified 06/10/19 19:10 macrocrystalline Breathing [From Macrobid] Sulfa (Sulfonamide Allergy Difficulty Verified 06/10/19 19:10 Antibiotics) Breathing Home Meds: Home Meds FLUoxetine [PROzac] 40 mg PO DAILY 02/08/14 [History] Multivitamins 1 cap PO DAILY 02/08/14 [History] atorvaSTATin [Lipitor] 20 mg PO DAILY 12/07/16 [History] hydrOXYzine HCl [Atarax] 50 mg PO BEDTIME 12/07/16 [History] Acetaminophen/HYDROcodone [Gormania 325-5 MG] 1 tab PO Q6H PRN #10 tablet 12/09/16 [Rx] Amoxicillin/Potassium Clav [Augmentin 875-125 Tablet] 1 each PO BID #24 tablet 12/09/16 [Rx] Amoxicillin/Clavulanate K [Augmentin 875-125 MG] 1 tab PO BID 10 Days #20 tablet 11/08/17 [Rx] Dicloxacillin 500 mg PO Q6H 10 Days #40 cap 06/10/19 [Rx] Past Medical History HEENT History: Reports: Sinusitis Cardiovascular History: Reports: High Cholesterol Gastrointestinal History: Reports: None Genitourinary History: Reports: UTI, Recurrent 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: Musculoskeletal History: Reports: Arthritis Neurological History: Reports: Headaches, Chronic Psychiatric History: Reports: Anxiety, Depression Endocrine/Metabolic History: Reports: Obesity/BMI 30+, Other (See Below) Other Endocrine/Metabolic History: prediabetic Hematologic History: Reports: Anemia Oncologic (Cancer) History: Reports: None Dermatologic History: Reports: None - Infectious Disease History Infectious Disease History: Reports: MRSA Other Infectious Disease History: Hx of MRSA Last 2006 in armpits and stomach - Past Surgical History GI Surgical History: Reports: Cholecystectomy, Other (See Below) Social & Family History - Family History Family Medical History: Noncontributory HEENT: Reports: Cataract, Sinusitis Cardiac: Reports: High Cholesterol, Hypertension Respiratory: Reports: Asthma, COPD OBGYN: Reports: Musculoskeletal: Reports: Osteoarthritis Neurological: Reports: Alzheimers Disease Psychiatric: Reports: Anxiety, Depression Endocrine/Metabolic: Reports: Diabetes, Type I, Diabetes, type II Oncologic: Reports: Lung, Lymphoma - Caffeine Use Caffeine Use: Reports: Coffee, Soda ED ROS GENERAL - Review of Systems Review Of Systems: ROS reveals no pertinent complaints other than HPI. ED EXAM, SKIN/RASH Exam: See Below (see dictation) Exam Limited By: No Limitations General Appearance: Alert, WD/WN, No Apparent Distress Ears: Normal External Exam, Normal Canal, Hearing Grossly Normal, Normal TMs Nose: Normal Inspection, Normal Mucosa, No Blood Throat/Mouth: Normal Inspection, Normal Lips, Normal Teeth, Normal Gums, Normal Oropharynx, Normal Voice, No Airway Compromise Head: Atraumatic, Normocephalic Neck: Normal Inspection, Supple, Non-Tender, Full Range of Motion Respiratory/Chest: No Respiratory Distress, Lungs Clear, Normal Breath Sounds, No Accessory Muscle Use, Chest Non-Tender Cardiovascular: Normal Peripheral Pulses, Regular Rate, Rhythm, No Edema, No Gallop, No JVD, No Murmur, No Rub GI/Abdominal: Normal Bowel Sounds, Soft, Non-Tender, No Organomegaly, No Distention, No Abnormal Bruit, No Mass (Female) Exam: Normal External Exam, Normal Speculum Exam, Normal Bimanual Exam Rectal (Female) Exam: Normal Exam, Normal Rectal Tone Back Exam: Normal Inspection, Full Range of Motion, NT Extremities: Normal Inspection, Normal Range of Motion, Non-Tender, No Pedal Edema, Normal Capillary Refill Neurological: Alert, Oriented, CN II-XII Intact, Normal Cognition, Normal Gait, Normal Reflexes, No Motor/Sensory Deficits Psychiatric: Normal Affect, Normal Mood Lymphatic: No Adenopathy Course - Vital Signs Last Recorded V/S: Last Vital Signs Temp 96.9 F 06/10/19 19:12 Pulse 86 06/10/19 19:12 Resp 16 06/10/19 19:12 BP 132/81 06/10/19 19:12 Pulse Ox 95 06/10/19 19:12 Departure - Departure Time of Disposition: 19:53 Disposition: Home, Self-Care 01 Condition: Good Clinical Impression: Cellulitis - Discharge Information Prescriptions: Dicloxacillin 500 mg PO Q6H 10 Days #40 cap Referrals: PCP,None [Primary Care Provider] - Forms: ED Department Discharge Additional Instructions: The following information is given to patients seen in the emergency department who are being discharged to home. This information is to outline your options for follow-up care. We provide all patients seen in our emergency department with a follow-up referral. The need for follow-up, as well as the timing and circumstances, are variable depending upon the specifics of your emergency department visit. If you don't have a primary care physician on staff, we will provide you with a referral. We always advise you to contact your personal physician following an emergency department visit to inform them of the circumstance of the visit and for follow-up with them and/or the need for any referrals to a consulting specialist. The emergency department will also refer you to a specialist when appropriate. This referral assures that you have the opportunity for follow-up care with a specialist. All of these measure are taken in an effort to provide you with optimal care, which includes your follow-up. Under all circumstances we always encourage you to contact your private physician who remains a resource for coordinating your care. When calling for follow-up care, please make the office aware that this follow-up is from your recent emergency room visit. If for any reason you are refused follow-up, please contact the [facility] Emergency Department at and asked to speak to the emergency department charge nurse. [facility] [address] [place] [address] [facility] [address] [place] [address] Take antibiotic as instructed Follow up with primary care provider Return to ED as needed as discussed
[2019-06-10 19:23] VITALS: BP 132/81; PULSE 86
--- NOTE | 2019-06-10 19:47 | CR ---
INDICATION: Pain. Cellulitis. Evaluate for subcutaneous gas TECHNIQUE: Two views right elbow COMPARISON: None FINDINGS AND IMPRESSION: No acute fracture. No dislocation. No suspicious bone lesion. No cortical destruction. No radiopaque foreign body. No subcutaneous gas. Dictated by Sharath Cameron MD @ 06/10/2019 7:46:00 PM Dictated by: Sharath Cameron MD @ 06/10/2019 19:46:04 (Electronically Signed)
== END 2019-06-10 19:59 | disposition home or self-care (01) ==
LOC: MW.ED 18:54
DX: L03.113 Cellulitis of right upper limb (principal); E66.9 Obesity, unspecified; F32.9 Major depressive disorder, single episode, unspecified; Z79.899 Other long term (current) drug therapy; Z88.1 Allergy status to other antibiotic agents; Z91.040 Latex allergy status; Z88.8 Allergy status to other drugs, medicaments and biological substances
CPT/HCPCS: 73070-26-RT; 73070-RT; 99283-25

== ENCOUNTER 2021-04-19 18:44 | Emergency (ER) | payer BC ==
[2021-04-19] MEDS ORDERED: Ketorolac 60 MG/2 ML SDV IM ONE (20:40)
[2021-04-19 20:43] VITALS: BP 132/78; PULSE 98
--- NOTE | 2021-04-19 20:46 | EDM.PDOC ---
ED HPI GENERAL MEDICAL PROBLEM - General Chief Complaint: ENT Problem Stated Complaint: THROAT CLOSING Time Seen by Provider: 04/19/21 20:20 Source of Information: Reports: Patient History Limitations: Reports: No Limitations - History of Present Illness INITIAL COMMENTS - FREE TEXT/NARRATIVE: HISTORY AND PHYSICAL: History of present illness: Patient is a 41-year-old female who presents to the emergency room with complaints of a sore throat with swelling, hoarseness, and bilateral ear fullness which started this a.m. The patient states that she has allergies around this time urine cannot think of anything about her symptoms at first but then over the course of the day her throat became increasingly sore and the swelling increased. She denies fever and has not taken anything [id number] to treat her symptoms. Patient denies any chills, headache, change in vision, syncope or near syncope. Denies any chest pain, back pain, shortness of breath or cough. Denies any abdominal pain, nausea, vomiting, diarrhea, constipation or dysuria. Has not noted any blood in urine or stool. Patient has been eating and drinking appropriately. Review of systems: As per history of present illness and below otherwise all systems reviewed and negative. Past medical history: As per history of present illness and as reviewed below otherwise noncontributory. Surgical history: As per history of present illness and as reviewed below otherwise noncontributory. Social history: See social history for further information Family history: As per history of present illness and as reviewed below otherwise noncontributory. Physical exam: General: Well developed and well nourished. Alert and orientated x 3. Nontoxic in appearance and in no acute distress. Vital signs are stable and have been reviewed by me. Nursing notes were reviewed. HEENT: Atraumatic, normocephalic, pupils equal and reactive bilaterally, negative for conjunctival pallor or scleral icterus, mucous membranes moist, TMs normal bilaterally, throat edema, submandibular lymph nodes swollen , tender, trachea midline. No drooling or trismus noted. No meningeal signs. No hot potato voice noted. Lungs: Clear to auscultation bilaterally. No wheezes, rales, or rhonchi. Chest nontender. Normal work of breathing, no accessory muscles used. Heart: S1S2, regular rate and rhythm without overt murmur, gallops, or rubs. No JVD. No peripheral edema Abdomen: Soft, nondistended, nontender. Normoactive bowel sounds. Negative for masses or costovertebral tenderness. Skin: Intact, warm, dry. No lesions or rashes noted. Hematologic: No petechiae or purpra. Mucosa appropriate color and normal nail bed color and refill. Extremities: Atraumatic, moves all extremities per self without difficulty or deficits, negative for cords or calf pain. Neurovascular unremarkable. Neuro: Awake, alert, oriented. Cranial nerves II through XII unremarkable. Cerebellum unremarkable. Motor and sensory unremarkable throughout. Exam nonfocal. Psychiatric: Mood and affect are appropriate. Normal thought process. Answering questions appropriately. Notes: *This patient was seen and evaluated during the 2019 SARS-CoV-2 novel coronavirus pandemic period. Community viral transmission is ongoing at time of this encounter and the emergency department is operating under pandemic response procedures. The patient is a 41-year-old female who presents to the emergency department with complaints of a sore throat that started this morning. She also has submandibular swelling after lymph nodes and bilateral ear fullness. She has not run a fever. I will do a throat swab. And give her Toradol 60 mg IM for her pain. The patient is agreeable with this plan. I have talked with the patient about today's findings, in addition to providing specific details for plan of care. Reassessment at the time of disposition demonstrates that the patient is in no acute distress. The patient is stable for discharge, counseling was provided and we discussed in great detail signs and symptoms that would prompt them to return to the Emergency Department. Medication, follow up and supportive care measures were reviewed and discussed. Voices understanding and is agreeable to plan of care. Denies any further questions or concerns at this time. Diagnostics: Strep a swab Therapeutics: Toradol 60 mg IM Impression: Pharyngitis Plan: 1. You were evaluated today on an emergent basis. Your sore throat was evaluated with a strep swab. It was negative. However due to your symptoms I will treat you with penicillin 500 mg twice a day for 10 days. You can use a warm salt water gargle or any [id number] preparations that will help your sore throat symptoms. 2. You can alternate Tylenol and ibuprofen as needed for pain and fever management. 3. We encourage you to follow up with your primary care provider and/or recommended specialist in the next few days for re-evaluation and further care/management. 4. If your symptoms should worsen, new symptoms develop or any of the signs and symptoms we discussed should arise please return to the emergency room or call 911 (if needed). Definitive disposition and diagnosis as appropriate pending reevaluation and review of above. throat Pain Score (Numeric/FACES): 7 - Related Data Allergies Allergy/AdvReac Type Severity Reaction Status Date / Time ciprofloxacin HCl Allergy Burning Verified 04/19/21 20:34 [From Cipro] latex Allergy Redness Verified 04/19/21 20:34 levofloxacin [From Levaquin] Allergy Difficulty Verified 04/19/21 20:34 Breathing lidocaine Allergy Facial Verified 04/19/21 20:34 Swelling nitrofurantoin Allergy Difficulty Verified 04/19/21 20:34 [From Macrobid] Breathing nitrofurantoin Allergy Difficulty Verified 04/19/21 20:34 macrocrystalline Breathing [From Macrobid] Sulfa (Sulfonamide Allergy Difficulty Verified 04/19/21 20:34 Antibiotics) Breathing Home Meds: Home Meds Multivitamins 1 cap PO DAILY 02/08/14 [History] atorvaSTATin [Lipitor] 20 mg PO DAILY 12/07/16 [History] hydrOXYzine HCl [Atarax] 50 mg PO BEDTIME 12/07/16 [History] Dextroamphetamine/Amphetamine [Adderall 10 mg Tablet] 1 dose PO DAILY 04/19/21 [History] Escitalopram [Lexapro] 1 dose PO DAILY 04/19/21 [History] Lisdexamfetamine Dimesylate [Vyvanse] 1 dose PO DAILY 04/19/21 [History] Montelukast [Singulair] 10 mg PO DAILY 04/19/21 [History] Penicillin V Potassium 500 mg PO BID 10 Days #20 tablet 04/19/21 [Rx] Semaglutide [Ozempic] 1 dose PO DAILY 04/19/21 [History] buPROPion [Wellbutrin] 1 dose PO DAILY 04/19/21 [History] buPROPion [Wellbutrin] 1 dose PO DAILY 04/19/21 [History] Past Medical History HEENT History: Reports: Sinusitis Cardiovascular History: Reports: High Cholesterol Gastrointestinal History: Reports: None Genitourinary History: Reports: UTI, Recurrent 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: Musculoskeletal History: Reports: Arthritis Neurological History: Reports: Headaches, Chronic Psychiatric History: Reports: Anxiety, Depression Endocrine/Metabolic History: Reports: Obesity/BMI 30+, Other (See Below) Other Endocrine/Metabolic History: prediabetic Hematologic History: Reports: Anemia Oncologic (Cancer) History: Reports: None Dermatologic History: Reports: None - Infectious Disease History Infectious Disease History: Reports: MRSA Other Infectious Disease History: Hx of MRSA Last 2006 in armpits and stomach - Past Surgical History GI Surgical History: Reports: Cholecystectomy, Other (See Below) Social & Family History - Family History Family Medical History: No Pertinent Family History HEENT: Reports: Cataract, Sinusitis Cardiac: Reports: High Cholesterol, Hypertension Respiratory: Reports: Asthma, COPD OBGYN: Reports: Musculoskeletal: Reports: Osteoarthritis Neurological: Reports: Alzheimers Disease Psychiatric: Reports: Anxiety, Depression Endocrine/Metabolic: Reports: Diabetes, Type I, Diabetes, type II Oncologic: Reports: Lung, Lymphoma - Caffeine Use Caffeine Use: Reports: Coffee, Soda ED ROS ENT - Review of Systems Review Of Systems: Comprehensive ROS is negative, except as noted in HPI. ED EXAM, ENT - Physical Exam Exam: See Below (See dictation) Course - Vital Signs Last Recorded V/S: Last Vital Signs Temp 98.4 F 04/19/21 20:39 Pulse 98 04/19/21 20:39 Resp 18 04/19/21 20:39 BP 132/78 04/19/21 20:39 Pulse Ox 95 04/19/21 20:39 - Orders/Labs/Meds Labs: Laboratory Tests 04/19/21 Range/Units 20:33 Group A Strep (PCR) NOT DETECTED (NOT DETECT) Meds: Medications Discontinued Medications Generic Name Dose Route Start Last Admin Trade Name Freq PRN Reason Stop Dose Admin Ketorolac Tromethamine 60 mg 04/19/21 20:40 04/19/21 20:50 Ketorolac 60 Mg/2 Ml Sdv IM 04/19/21 20:41 60 mg ONETIME ONE Administration Departure - Departure Time of Disposition: 21:26 Disposition: Home, Self-Care 01 Condition: Good Clinical Impression: Pharyngitis Qualifiers: Pharyngitis/tonsillitis etiology: other specified organisms Qualified Code(s): J02.8 - Acute pharyngitis due to other specified organisms - Discharge Information *PRESCRIPTION DRUG MONITORING PROGRAM REVIEWED*: Not Applicable *COPY OF PRESCRIPTION DRUG MONITORING REPORT IN PATIENT EDWIGE: Not Applicable Prescriptions: Penicillin V Potassium 500 mg PO BID 10 Days #20 tablet Instructions: Pharyngitis Referrals: Lorena Colon DO [Primary Care Provider] - Forms: ED Department Discharge Additional Instructions: The following information is given to patients seen in the emergency department who are being discharged to home. This information is to outline your options for follow-up care. We provide all patients seen in our emergency department with a follow-up referral. The need for follow-up, as well as the timing and circumstances, are variable depending upon the specifics of your emergency department visit. If you don't have a primary care physician on staff, we will provide you with a referral. We always advise you to contact your personal physician following an emergency department visit to inform them of the circumstance of the visit and for follow-up with them and/or the need for any referrals to a consulting specialist. The emergency department will also refer you to a specialist when appropriate. This referral assures that you have the opportunity for follow-up care with a specialist. All of these measure are taken in an effort to provide you with optimal care, which includes your follow-up. Under all circumstances we always encourage you to contact your private physician who remains a resource for coordinating your care. When calling for follow-up care, please make the office aware that this follow-up is from your recent emergency room visit. If for any reason you are refused follow-up, please contact the [facility] Emergency Department at and asked to speak to the emergency department charge nurse. [facility] [address] [place] [address] [id number] [address] [address] Plan: 1. You were evaluated today on an emergent basis. Your sore throat was evaluated with a strep swab. It was negative. However due to your symptoms I will treat you with penicillin 500 mg twice a day for 10 days. You can use a warm salt water gargle or any [id number] preparations that will help your sore throat symptoms. 2. You can alternate Tylenol and ibuprofen as needed for pain and fever management. 3. We encourage you to follow up with your primary care provider and/or recommended specialist in the next few days for re-evaluation and further care/management. 4. If your symptoms should worsen, new symptoms develop or any of the signs and symptoms we discussed should arise please return to the emergency room or call 911 (if needed).
== END 2021-04-19 21:38 | disposition home or self-care (01) ==
LOC: MW.ED 18:44
DX: J02.8 Acute pharyngitis due to other specified organisms (principal); E78.00 Pure hypercholesterolemia, unspecified; E66.9 Obesity, unspecified; Z68.39 Body mass index [BMI] 39.0-39.9, adult; Z79.899 Other long term (current) drug therapy; Z88.4 Allergy status to anesthetic agent; Z88.1 Allergy status to other antibiotic agents; Z91.040 Latex allergy status; Z88.2 Allergy status to sulfonamides
CPT/HCPCS: 87651; 96372; 99283; J1885